=== PATIENT | female | born 1990 | race Caucasian/White ===

== ENCOUNTER 2025-08-05 13:21 | Outpatient (CLI) | payer BC, SELFPAY | END 2025-08-05 13:22 | disposition home or self-care (01) | LOC: US 13:21 | PROVIDERS: Visit Provider Advanced Practice Midwife | DX: O09.512 Supervision of elderly primigravida, second trimester (principal); Z3A.18 18 weeks gestation of pregnancy | CPT/HCPCS: 76811 ==

== ENCOUNTER 2025-08-26 10:31 | Outpatient (CLI) | payer BC, SELFPAY | END 2025-08-26 10:32 | disposition home or self-care (01) | LOC: US 10:32 | PROVIDERS: Visit Provider Midwife | DX: Z36.2 Encounter for other antenatal screening follow-up (principal); Z3A.21 21 weeks gestation of pregnancy | CPT/HCPCS: 76816 ==

== ENCOUNTER 2025-10-05 10:29 | Outpatient (CLI) | payer BC, SELFPAY | END 2025-10-05 10:30 | disposition home or self-care (01) | PROVIDERS: Visit Provider Midwife | DX: Z34.92 Encounter for supervision of normal pregnancy, unspecified, second trimester (principal) | CPT/HCPCS: 86592 ==